=== PATIENT | female | born 1940 | race Caucasian/White ===

== ENCOUNTER 2020-12-17 23:21 | Inpatient (IN) | payer MEDICARE ==
[~2020-12-17 23:21] MED LIST: Iopamidol-370 76% 500 ML 1 ML ONE
[2020-12-18 00:01] LABS: #Lymphocytes 0.7 thou/uL (1.20-3.40); #Monocytes 0.6 thou/uL (0.11-0.59); #Neutrophils 10.2 thou/uL (1.40-6.50); %Basophils 0.1 % (0.0-1.0); %Eosinophils 0.1 % (0.0-10.0); %Lymphocytes 5.9 % (21.0-51.0); %Monocytes 4.9 % (0.0-10.0); Hemoglobin 11.9 g/dL (12.0-16.0); Mean Corpuscular HGB CONC 36.4 g/dL (32.0-36.0); Mean Corpuscular Hemoglobin 33.7 pg (27.0-31.0); Mean Corpuscular Volume 92.7 fL (78.0-98.0); Mean Platelet Volume 9.2 fL (7.4-10.4); Platelet Count 163 thou/uL (130-400); RBC Distribution Width 11.2 % (11.5-14.5); Red Blood Cell (RBC) Count 3.52 mill/uL (4.20-5.40); White Blood Cell (WBC) Count 11.4 thou/uL (4.8-10.8)
[2020-12-18 00:07] LABS: Prothrombin Time 13.4 sec (12.0-14.7)
[2020-12-18 00:08] LABS: PTT 31.7 sec (22.9-36.1)
[2020-12-18 00:11] LABS: D-Dimer Test 0.6 *mcg/mL (0.27-0.43)
[2020-12-18 00:12] LABS: ALT (SGPT) 15 U/L (8-55); AST (SGOT) 23 U/L (5-34); Albumin 3.8 g/dL (3.4-4.8); Alkaline Phosphatase 69 U/L (40-110); Anion Gap 15 mmol/L (10-20); BUN (Urea Nitrogen) 9 mg/dL (9.8-20.1); Calc. Creatinine Clearance 0 mL/min (70-130); Carbon Dioxide 21 mmol/L (23-31); Chloride 76 mmol/L (98-107); Globulin 2.3 g/dL (2.4-3.5); Protein, Total 6.1 g/dL (5.8-8.1)
[2020-12-18] MEDS ORDERED: Cefepime 2 GM VIAL ONE (00:19)
[2020-12-18] MEDS ORDERED: Vancomycin 1 GM/200 ML BAG ONE (00:19)
[2020-12-18] MEDS ORDERED: hydrALAZINE 20 MG/ML VIAL ONE (00:19)
[2020-12-18 00:21] LABS: Glucose 240 mg/dL (83-110); Potassium 2.7 mmol/L (3.5-5.1); Sodium 109 mmol/L (136-145)
[2020-12-18 00:36] LABS: Bacteria/HPF None Seen HPF (None Seen); Bilirubin Negative (Negative); Blood, Urine Trace (Negative); Clarity Clear (Clear); Glucose, Urine (Dipstick) 500 mg/dL (Negative); Ketone, Urine 10 mg/dL (Negative); Leukocyte Negative Leu/uL (Negative); Nitrite Negative (Negative); Protein, Urine (Dipstick) 10 mg/dL (Neg-Trace); RBC/HPF 0-3 HPF (0-3); Specific Gravity, Urine 1.016 (1.002-1.036); Squamous Epithelial 0-3 HPF (0-3); Urobilinogen Normal mg/dL (Less than 2); WBC/HPF 0-3 HPF (0-3); pH, Urine 7.5 (5.0-9.0)
[2020-12-18 01:52] LABS: SARS-CoV-2 NAA Rapid Test Not Detected (NotDetected)
[2020-12-18] MEDS ORDERED: Guaifenesin DM 100-10/5 ML UDCUP PO PRN (01:56)
[2020-12-18] MEDS ORDERED: Melatonin 3 MG TAB PO PRN (01:56)
[2020-12-18] MEDS ORDERED: Ondansetron PF 4 MG/2 ML Vial IVP PRN (01:56)
[2020-12-18] MEDS ORDERED: Promethazine HCl 12.5 MG in Sodium Chloride 0.9% 50 ML IVPB PRN (01:56)
[2020-12-18] MEDS ORDERED: Sodium Chloride 0.9% 1,000 ML IV SCH (02:00)
[2020-12-18] MEDS ORDERED: Electrolyte Replacement Protocol 1 EACH FS PRN (02:00)
[2020-12-18] MEDS ORDERED: HumaLOG 300 UNITS/3 ML VIAL SC PRN (02:28)
[2020-12-18 03:44] LABS: #Lymphocytes 0.4 thou/uL (1.20-3.40); #Monocytes 0.6 thou/uL (0.11-0.59); %Eosinophils 0.1 % (0.0-10.0); %Monocytes 4.9 % (0.0-10.0); %Neutrophils 92.1 % (42.0-75.0); Hemoglobin 12.4 g/dL (12.0-16.0); Mean Corpuscular HGB CONC 35.8 g/dL (32.0-36.0); Mean Corpuscular Volume 92.2 fL (78.0-98.0); Mean Platelet Volume 9.4 fL (7.4-10.4); Platelet Count 175 thou/uL (130-400); RBC Distribution Width 11.2 % (11.5-14.5); Red Blood Cell (RBC) Count 3.76 mill/uL (4.20-5.40)
[2020-12-18 03:54] LABS: Lactic Acid 2.1 mmol/L (0.5-2.2)
[2020-12-18 04:01] LABS: Anion Gap 13 mmol/L (10-20); BUN (Urea Nitrogen) 8 mg/dL (9.8-20.1); Calc. Creatinine Clearance 60 mL/min (70-130); Calcium 8.4 mg/dL (7.8-10.44); Carbon Dioxide 24 mmol/L (23-31); Chloride 79 mmol/L (98-107); Glucose 170 mg/dL (83-110); Magnesium 2.1 mg/dL (1.6-2.6)
[2020-12-18 04:07] LABS: Potassium 2.7 mmol/L (3.5-5.1); Sodium 113 mmol/L (136-145)
[2020-12-18] MEDS: Potassium Chloride 20 MEQ in Premix Bag 1 BAG IVPB SCH ×4 (04:45→13:42)
[2020-12-18] MEDS ORDERED: Potassium Chloride 20 MEQ TAB PO SCH ×2 (07:03→10:45)
[2020-12-18] MEDS: Famotidine 20 MG TAB PO SCH ×2 (09:45→21:46)
[2020-12-18] MEDS: Heparin 5,000 UNITS/ML VIAL SC SCH ×2 (09:45→21:46)
[2020-12-18 12:33] LABS: Anion Gap 15 mmol/L (10-20); BUN (Urea Nitrogen) 8 mg/dL (9.8-20.1); Calc. Creatinine Clearance 55 mL/min (70-130); Calcium 8.8 mg/dL (7.8-10.44); Carbon Dioxide 24 mmol/L (23-31); Chloride 80 mmol/L (98-107); Glucose 134 mg/dL (83-110); Potassium 3.5 mmol/L (3.5-5.1)
[2020-12-18 12:37] LABS: Sodium 115 mmol/L (136-145)
[2020-12-18] MEDS: Acetaminophen 325 MG TAB PO PRN (15:59)
[2020-12-18 16:47] LABS: Anion Gap 14 mmol/L (10-20); BUN (Urea Nitrogen) 8 mg/dL (9.8-20.1); Calc. Creatinine Clearance 56 mL/min (70-130); Carbon Dioxide 24 mmol/L (23-31); Chloride 82 mmol/L (98-107); Glucose 124 mg/dL (83-110); Potassium 4.2 mmol/L (3.5-5.1)
[2020-12-18 16:53] LABS: Sodium 116 mmol/L (136-145)
[2020-12-18 21:08] LABS: Anion Gap 15 mmol/L (10-20); BUN (Urea Nitrogen) 9 mg/dL (9.8-20.1); Calc. Creatinine Clearance 55 mL/min (70-130); Carbon Dioxide 21 mmol/L (23-31); Chloride 86 mmol/L (98-107); Glucose 121 mg/dL (83-110); Potassium 4.4 mmol/L (3.5-5.1)
[2020-12-18 21:40] LABS: Sodium 118 mmol/L (136-145)
[2020-12-19 01:22] LABS: Anion Gap 15 mmol/L (10-20); BUN (Urea Nitrogen) 7 mg/dL (9.8-20.1); Calc. Creatinine Clearance 59 mL/min (70-130); Calcium 8.8 mg/dL (7.8-10.44); Carbon Dioxide 21 mmol/L (23-31); Chloride 88 mmol/L (98-107); Glucose 123 mg/dL (83-110); Potassium 4.5 mmol/L (3.5-5.1)
[2020-12-19 01:29] LABS: Sodium 119 mmol/L (136-145)
[2020-12-19 03:42] LABS: Anion Gap 12 mmol/L (10-20); BUN (Urea Nitrogen) 7 mg/dL (9.8-20.1); Calc. Creatinine Clearance 59 mL/min (70-130); Calcium 8.9 mg/dL (7.8-10.44); Carbon Dioxide 25 mmol/L (23-31); Chloride 88 mmol/L (98-107); Glucose 128 mg/dL (83-110); Magnesium 2.2 mg/dL (1.6-2.6); Potassium 3.9 mmol/L (3.5-5.1); Sodium 121 mmol/L (136-145)
[2020-12-19 06:42] LABS: #Basophils 0.1 thou/uL (0.0-0.2); #Lymphocytes 1.1 thou/uL (1.20-3.40); #Monocytes 1.2 thou/uL (0.11-0.59); #Neutrophils 6.7 thou/uL (1.40-6.50); %Basophils 0.7 % (0.0-1.0); %Eosinophils 0.3 % (0.0-10.0); %Lymphocytes 12.5 % (21.0-51.0); %Monocytes 12.9 % (0.0-10.0); %Neutrophils 73.7 % (42.0-75.0); Hemoglobin 12.6 g/dL (12.0-16.0); MDiff Complete? YES; Mean Corpuscular HGB CONC 35.5 g/dL (32.0-36.0); Mean Corpuscular Hemoglobin 33.1 pg (27.0-31.0); Mean Corpuscular Volume 93.2 fL (78.0-98.0); Mean Platelet Volume 11.2 fL (7.4-10.4); Platelet Clumps MODERATE; Platelet Count 182 thou/uL (130-400); RBC Distribution Width 11.5 % (11.5-14.5); White Blood Cell (WBC) Count 9.1 thou/uL (4.8-10.8)
[2020-12-19] MEDS: Heparin 5,000 UNITS/ML VIAL SC SCH ×2 (08:10→21:58)
[2020-12-19] MEDS: Famotidine 20 MG TAB PO SCH ×2 (08:10→21:57)
[2020-12-19] MEDS ORDERED: Loratadine 10 MG TAB PO PRN (08:23)
[2020-12-19] MEDS ORDERED: HYDROcodone/Acetaminophen 5/325 mg Tablet PO PRN (08:23)
[2020-12-19] MEDS ORDERED: Sodium Chloride 0.65% Nasal 44 ML BOT EA NARE PRN (08:23)
[2020-12-19] MEDS ORDERED: Ondansetron ODT 4 MG TAB PO PRN (08:23)
[2020-12-19] MEDS ORDERED: Cepastat Lozenges 1 LOZ PO PRN (08:23)
[2020-12-19] MEDS ORDERED: GUAIFENESIN SF SOLN 200 MG/10 ML UDCUP PO PRN (08:23)
[2020-12-19] MEDS ORDERED: Bisacodyl 5 MG TAB PO PRN (08:23)
[2020-12-19] MEDS ORDERED: Loperamide HCl 2 MG CAP PO PRN (08:23)
[2020-12-19] MEDS ORDERED: Calcium Carbonate 500 MG ChewTAB PO PRN (08:23)
[2020-12-19 08:47] LABS: Anion Gap 15 mmol/L (10-20); BUN (Urea Nitrogen) 8 mg/dL (9.8-20.1); Calc. Creatinine Clearance 49 mL/min (70-130); Calcium 9.4 mg/dL (7.8-10.44); Carbon Dioxide 25 mmol/L (23-31); Chloride 86 mmol/L (98-107); Glucose 147 mg/dL (83-110); Potassium 3.6 mmol/L (3.5-5.1); Sodium 122 mmol/L (136-145)
[2020-12-19] MEDS ORDERED: Levothyroxine Sodium 100 MCG TAB PO SCH (09:00)
[2020-12-19] MEDS ORDERED: Losartan 25 MG TAB PO SCH ×2 (09:00→17:00)
[2020-12-19] MEDS ORDERED: Potassium Chloride 20 MEQ TAB PO SCH (09:45)
[2020-12-19] MEDS: Folic Acid 1 MG TAB PO SCH (10:08)
[2020-12-19] MEDS: Cyanocobalamin (Vitamin B-12) 1,000 MCG TAB PO SCH (10:08)
[2020-12-19] MEDS: Labetalol HCl 100 MG/20 ML VIAL SLOW IVP PRN ×2 (12:15→16:38)
[2020-12-19] MEDS: cloNIDine 0.1 MG TAB PO PRN (15:12)
[2020-12-19 17:07] LABS: Anion Gap 13 mmol/L (10-20); BUN (Urea Nitrogen) 8 mg/dL (9.8-20.1); Calc. Creatinine Clearance 56 mL/min (70-130); Calcium 8.9 mg/dL (7.8-10.44); Carbon Dioxide 22 mmol/L (23-31); Chloride 86 mmol/L (98-107); Glucose 121 mg/dL (83-110); Potassium 4.4 mmol/L (3.5-5.1)
[2020-12-19 17:19] LABS: Sodium 117 mmol/L (136-145)
[2020-12-19] MEDS ORDERED: Sodium Chloride 1 GM TAB PO SCH (17:30)
[2020-12-19] MEDS: hydrALAZINE 20 MG/ML VIAL SLOW IVP PRN (18:11)
[2020-12-19] MEDS: Sodium Chloride 1 GM TAB PO SCH (21:58)
[2020-12-20] MEDS: Acetaminophen 325 MG TAB PO PRN (02:26)
[2020-12-20] MEDS: hydrALAZINE 20 MG/ML VIAL SLOW IVP PRN ×2 (03:24→13:09)
[2020-12-20 05:49] LABS: #Neutrophils 6.4 thou/uL (1.40-6.50); %Basophils 0.2 % (0.0-1.0); %Eosinophils 0.3 % (0.0-10.0); %Neutrophils 75.4 % (42.0-75.0); Hemoglobin 12.7 g/dL (12.0-16.0); Mean Corpuscular HGB CONC 35.6 g/dL (32.0-36.0); Mean Corpuscular Hemoglobin 33.2 pg (27.0-31.0); Mean Corpuscular Volume 93.3 fL (78.0-98.0); Mean Platelet Volume 9.2 fL (7.4-10.4); Platelet Count 206 thou/uL (130-400); RBC Distribution Width 11.5 % (11.5-14.5); Red Blood Cell (RBC) Count 3.81 mill/uL (4.20-5.40); White Blood Cell (WBC) Count 8.5 thou/uL (4.8-10.8)
[2020-12-20 06:09] LABS: ALT (SGPT) 18 U/L (8-55); AST (SGOT) 33 U/L (5-34); Alkaline Phosphatase 73 U/L (40-110); Anion Gap 12 mmol/L (10-20); BUN (Urea Nitrogen) 8 mg/dL (9.8-20.1); Bilirubin, Total 0.8 mg/dL (0.2-1.2); Calc. Creatinine Clearance 58 mL/min (70-130); Calcium 8.9 mg/dL (7.8-10.44); Carbon Dioxide 25 mmol/L (23-31); Chloride 88 mmol/L (98-107); Globulin 2.6 g/dL (2.4-3.5); Glucose 126 mg/dL (83-110); Magnesium 1.9 mg/dL (1.6-2.6); Potassium 3.9 mmol/L (3.5-5.1); Protein, Total 6.6 g/dL (5.8-8.1); Sodium 121 mmol/L (136-145)
[2020-12-20 06:13] LABS: Phosphorus 2.3 mg/dL (2.3-4.7)
[2020-12-20] MEDS: cloNIDine 0.1 MG TAB PO PRN ×2 (06:33→23:50)
[2020-12-20] MEDS: Levothyroxine 150 MCG TAB PO SCH (06:33)
[2020-12-20] MEDS: Cyanocobalamin (Vitamin B-12) 1,000 MCG TAB PO SCH (08:54)
[2020-12-20] MEDS: Folic Acid 1 MG TAB PO SCH (08:54)
[2020-12-20] MEDS: Losartan 25 MG TAB PO SCH (08:55)
[2020-12-20] MEDS: Heparin 5,000 UNITS/ML VIAL SC SCH ×2 (08:56→20:46)
[2020-12-20] MEDS: Sodium Chloride 1 GM TAB PO SCH ×3 (08:56→20:39)
[2020-12-20] MEDS: Famotidine 20 MG TAB PO SCH ×2 (08:56→20:42)
[2020-12-20] MEDS ORDERED: Amlodipine 5 MG TAB PO SCH (09:00)
[2020-12-20 12:31] LABS: Anion Gap 12 mmol/L (10-20); BUN (Urea Nitrogen) 9 mg/dL (9.8-20.1); Calc. Creatinine Clearance 60 mL/min (70-130); Calcium 8.9 mg/dL (7.8-10.44); Carbon Dioxide 24 mmol/L (23-31); Chloride 86 mmol/L (98-107); Glucose 115 mg/dL (83-110); Potassium 3.9 mmol/L (3.5-5.1)
[2020-12-20 12:36] LABS: Sodium 118 mmol/L (136-145)
[2020-12-20] MEDS: Labetalol HCl 100 MG/20 ML VIAL SLOW IVP PRN (19:18)
[2020-12-21] MEDS: hydrALAZINE 20 MG/ML VIAL SLOW IVP PRN ×2 (01:35→20:58)
[2020-12-21] MEDS: Levothyroxine 150 MCG TAB PO SCH (06:28)
[2020-12-21 07:19] LABS: #Lymphocytes 1.1 thou/uL (1.20-3.40); #Neutrophils 5.6 thou/uL (1.40-6.50); %Basophils 0.2 % (0.0-1.0); %Eosinophils 0.5 % (0.0-10.0); %Lymphocytes 14.7 % (21.0-51.0); %Monocytes 12.8 % (0.0-10.0); %Neutrophils 71.8 % (42.0-75.0); Hemoglobin 12.4 g/dL (12.0-16.0); Mean Corpuscular HGB CONC 33.7 g/dL (32.0-36.0); Mean Corpuscular Hemoglobin 31.9 pg (27.0-31.0); Mean Corpuscular Volume 94.7 fL (78.0-98.0); Mean Platelet Volume 10.3 fL (7.4-10.4); Platelet Count 156 thou/uL (130-400); RBC Distribution Width 11.5 % (11.5-14.5); Red Blood Cell (RBC) Count 3.89 mill/uL (4.20-5.40); White Blood Cell (WBC) Count 7.7 thou/uL (4.8-10.8)
[2020-12-21 07:33] LABS: Anion Gap 13 mmol/L (10-20); BUN (Urea Nitrogen) 10 mg/dL (9.8-20.1); Calc. Creatinine Clearance 56 mL/min (70-130); Carbon Dioxide 22 mmol/L (23-31); Chloride 88 mmol/L (98-107); Glucose 122 mg/dL (83-110); Potassium 3.4 mmol/L (3.5-5.1); Sodium 120 mmol/L (136-145)
[2020-12-21] MEDS ORDERED: Potassium Chloride 20 MEQ TAB PO SCH (08:00)
[2020-12-21] MEDS ORDERED: Amlodipine 10 MG TAB PO SCH (09:00)
[2020-12-21] MEDS ORDERED: Tolvaptan 15 MG TAB PO SCH (09:00)
[2020-12-21] MEDS: Losartan 25 MG TAB PO SCH (09:42)
[2020-12-21] MEDS: Cyanocobalamin (Vitamin B-12) 1,000 MCG TAB PO SCH (09:43)
[2020-12-21] MEDS: Folic Acid 1 MG TAB PO SCH (09:43)
[2020-12-21] MEDS: Famotidine 20 MG TAB PO SCH ×2 (09:43→20:56)
[2020-12-21] MEDS: Heparin 5,000 UNITS/ML VIAL SC SCH ×2 (09:43→20:56)
[2020-12-21] MEDS: TOLVAPTAN 30 MG TAB PO SCH (09:43)
[2020-12-21 16:42] LABS: Anion Gap 14 mmol/L (10-20); BUN (Urea Nitrogen) 12 mg/dL (9.8-20.1); Calc. Creatinine Clearance 53 mL/min (70-130); Calcium 9.7 mg/dL (7.8-10.44); Carbon Dioxide 23 mmol/L (23-31); Chloride 92 mmol/L (98-107); Glucose 137 mg/dL (83-110); Potassium 3.9 mmol/L (3.5-5.1); Sodium 125 mmol/L (136-145)
[2020-12-22] MEDS: hydrALAZINE 20 MG/ML VIAL SLOW IVP PRN ×3 (04:40→22:05)
[2020-12-22 05:13] LABS: #Basophils 0.1 thou/uL (0.0-0.2); #Monocytes 1.1 thou/uL (0.11-0.59); #Neutrophils 5.7 thou/uL (1.40-6.50); %Basophils 0.8 % (0.0-1.0); %Eosinophils 0.3 % (0.0-10.0); %Lymphocytes 12.9 % (21.0-51.0); %Monocytes 13.9 % (0.0-10.0); %Neutrophils 72.1 % (42.0-75.0); Hemoglobin 13.7 g/dL (12.0-16.0); Mean Corpuscular HGB CONC 33.7 g/dL (32.0-36.0); Mean Corpuscular Volume 95.2 fL (78.0-98.0); Mean Platelet Volume 9.6 fL (7.4-10.4); Platelet Count 229 thou/uL (130-400); RBC Distribution Width 11.8 % (11.5-14.5); Red Blood Cell (RBC) Count 4.28 mill/uL (4.20-5.40); White Blood Cell (WBC) Count 7.9 thou/uL (4.8-10.8)
[2020-12-22] MEDS: Levothyroxine 150 MCG TAB PO SCH (05:34)
[2020-12-22 05:36] LABS: ALT (SGPT) 30 U/L (8-55); AST (SGOT) 40 U/L (5-34); Albumin 4.3 g/dL (3.4-4.8); Alkaline Phosphatase 79 U/L (40-110); Anion Gap 17 mmol/L (10-20); BUN (Urea Nitrogen) 11 mg/dL (9.8-20.1); Bilirubin, Total 0.9 mg/dL (0.2-1.2); Calc. Creatinine Clearance 56 mL/min (70-130); Calcium 9.5 mg/dL (7.8-10.44); Carbon Dioxide 21 mmol/L (23-31); Chloride 94 mmol/L (98-107); Glucose 116 mg/dL (83-110); Potassium 3.6 mmol/L (3.5-5.1); Protein, Total 7.3 g/dL (5.8-8.1); Sodium 128 mmol/L (136-145)
[2020-12-22] MEDS ORDERED: Carvedilol 6.25 MG TAB PO SCH (08:00)
[2020-12-22] MEDS ORDERED: Potassium Chloride 20 MEQ TAB PO SCH (08:00)
[2020-12-22] MEDS: Heparin 5,000 UNITS/ML VIAL SC SCH ×2 (10:22→22:01)
[2020-12-22] MEDS: Potassium Chloride 20 MEQ TAB PO SCH (10:23)
[2020-12-22] MEDS: Cyanocobalamin (Vitamin B-12) 1,000 MCG TAB PO SCH (10:23)
[2020-12-22] MEDS: Losartan 25 MG TAB PO SCH (10:24)
[2020-12-22] MEDS: Labetalol 100 MG TAB PO SCH ×2 (10:24→22:26)
[2020-12-22] MEDS: NIFEdipine XL 60 MG TAB PO SCH ×2 (10:24→22:27)
[2020-12-22] MEDS: Famotidine 20 MG TAB PO SCH ×2 (10:24→22:26)
[2020-12-22] MEDS: Folic Acid 1 MG TAB PO SCH (10:24)
[2020-12-22] MEDS: TOLVAPTAN 30 MG TAB PO SCH (10:25)
[2020-12-23] MEDS: Levothyroxine 150 MCG TAB PO SCH (05:30)
[2020-12-23] MEDS: hydrALAZINE 20 MG/ML VIAL SLOW IVP PRN ×3 (05:48→20:30)
[2020-12-23 07:03] LABS: Albumin 4.1 g/dL (3.4-4.8); Anion Gap 14 mmol/L (10-20); BUN (Urea Nitrogen) 18 mg/dL (9.8-20.1); BUN/Creatinine Ratio 26.87; Calc. Creatinine Clearance 57 mL/min (70-130); Calcium 9.6 mg/dL (7.8-10.44); Carbon Dioxide 24 mmol/L (23-31); Chloride 94 mmol/L (98-107); Glucose 128 mg/dL (83-110); Phosphorus 3.5 mg/dL (2.3-4.7); Potassium 3.4 mmol/L (3.5-5.1); Sodium 129 mmol/L (136-145)
[2020-12-23] MEDS ORDERED: Potassium Chloride 40 MEQ in Premix Bag 1 BAG IVPB SCH (09:00)
[2020-12-23] MEDS: Potassium Chloride 20 MEQ TAB PO SCH (09:09)
[2020-12-23] MEDS: Heparin 5,000 UNITS/ML VIAL SC SCH ×2 (09:12→20:30)
[2020-12-23] MEDS: Cyanocobalamin (Vitamin B-12) 1,000 MCG TAB PO SCH (09:33)
[2020-12-23] MEDS: Losartan 25 MG TAB PO SCH (09:34)
[2020-12-23] MEDS: Folic Acid 1 MG TAB PO SCH (09:34)
[2020-12-23] MEDS: Labetalol 100 MG TAB PO SCH ×2 (09:34→21:18)
[2020-12-23] MEDS: NIFEdipine XL 60 MG TAB PO SCH ×2 (09:34→21:18)
[2020-12-23] MEDS: Famotidine 20 MG TAB PO SCH ×2 (09:34→21:18)
[2020-12-23] MEDS: TOLVAPTAN 30 MG TAB PO SCH (09:35)
[2020-12-23] MEDS ORDERED: Lorazepam 2 MG/ML VIAL SLOW IVP SCH (10:30)
[2020-12-23] MEDS: Labetalol HCl 100 MG/20 ML VIAL SLOW IVP PRN (11:28)
[2020-12-23] MEDS: Labetalol HCl 100 MG/20 ML VIAL SLOW IVP SCH ×2 (16:14→22:31)
[2020-12-23 16:26] LABS: Anion Gap 14 mmol/L (10-20); BUN (Urea Nitrogen) 20 mg/dL (9.8-20.1); Calc. Creatinine Clearance 54 mL/min (70-130); Calcium 9.9 mg/dL (7.8-10.44); Carbon Dioxide 24 mmol/L (23-31); Chloride 97 mmol/L (98-107); Glucose 133 mg/dL (83-110); Potassium 4.4 mmol/L (3.5-5.1); Sodium 131 mmol/L (136-145)
[2020-12-23] MEDS ORDERED: Morphine 2 MG/ML VIAL SLOW IVP PRN (20:41)
[2020-12-23] MEDS: Acetaminophen 650 MG Suppository PR PRN (20:55)
[2020-12-24] MEDS: hydrALAZINE 20 MG/ML VIAL SLOW IVP PRN (03:45)
[2020-12-24] MEDS: Acetaminophen 650 MG Suppository PR PRN (03:51)
[2020-12-24 04:14] LABS: #Lymphocytes 0.9 thou/uL (1.20-3.40); #Monocytes 1.3 thou/uL (0.11-0.59); #Neutrophils 9.1 thou/uL (1.40-6.50); %Basophils 0.1 % (0.0-1.0); %Eosinophils 0.2 % (0.0-10.0); %Monocytes 11.8 % (0.0-10.0); %Neutrophils 79.8 % (42.0-75.0); Hemoglobin 13.6 g/dL (12.0-16.0); Mean Corpuscular HGB CONC 35.5 g/dL (32.0-36.0); Mean Corpuscular Volume 95.9 fL (78.0-98.0); Mean Platelet Volume 8.7 fL (7.4-10.4); Platelet Count 235 thou/uL (130-400); White Blood Cell (WBC) Count 11.4 thou/uL (4.8-10.8)
[2020-12-24 04:33] LABS: Albumin 4.1 g/dL (3.4-4.8); Anion Gap 16 mmol/L (10-20); BUN (Urea Nitrogen) 26 mg/dL (9.8-20.1); BUN/Creatinine Ratio 37.68; Calc. Creatinine Clearance 55 mL/min (70-130); Calcium 10.1 mg/dL (7.8-10.44); Carbon Dioxide 24 mmol/L (23-31); Chloride 99 mmol/L (98-107); Glucose 130 mg/dL (83-110); Potassium 4.5 mmol/L (3.5-5.1); Sodium 134 mmol/L (136-145)
[2020-12-24 04:35] LABS: ALT (SGPT) 33 U/L (8-55); AST (SGOT) 27 U/L (5-34); Albumin 4.2 g/dL (3.4-4.8); Alkaline Phosphatase 82 U/L (40-110); Bilirubin, Direct 0.4 mg/dL (0.1-0.3); Bilirubin, Total 0.9 mg/dL (0.2-1.2); Protein, Total 7.2 g/dL (5.8-8.1)
[2020-12-24] MEDS: Levothyroxine 150 MCG TAB PO SCH (05:05)
[2020-12-24] MEDS ORDERED: Dextrose 5 % And 0.9 % NaCl 1,000 ML IV SCH (06:15)
[2020-12-24] MEDS: Labetalol HCl 100 MG/20 ML VIAL SLOW IVP SCH (09:37)
[2020-12-24] MEDS: Heparin 5,000 UNITS/ML VIAL SC SCH ×2 (09:49→21:53)
[2020-12-24] MEDS: Famotidine 20 MG TAB PO SCH ×2 (10:07→21:55)
[2020-12-24] MEDS: Cyanocobalamin (Vitamin B-12) 1,000 MCG TAB PO SCH (10:07)
[2020-12-24] MEDS: Losartan 25 MG TAB PO SCH ×2 (10:08→21:55)
[2020-12-24] MEDS: Folic Acid 1 MG TAB PO SCH (10:08)
[2020-12-24] MEDS: Labetalol 100 MG TAB PO SCH ×2 (10:08→21:54)
[2020-12-24] MEDS: NIFEdipine XL 60 MG TAB PO SCH ×2 (10:08→21:55)
[2020-12-24] MEDS: TOLVAPTAN 30 MG TAB PO SCH (10:09)
[2020-12-24] MEDS ORDERED: Labetalol HCl 100 MG/20 ML VIAL SLOW IVP SCH (12:00)
[2020-12-24 15:19] LABS: BUN (Urea Nitrogen) 28 mg/dL (9.8-20.1); Calc. Creatinine Clearance 56 mL/min (70-130); Calcium 9.9 mg/dL (7.8-10.44); Glucose 127 mg/dL (83-110)
[2020-12-24 15:28] LABS: Chloride 98 mmol/L (98-107); Potassium 4.3 mmol/L (3.5-5.1); Sodium 132 mmol/L (136-145)
[2020-12-24 17:27] LABS: Anion Gap 19 mmol/L (10-20); Carbon Dioxide 19 mmol/L (23-31)
[2020-12-25 05:12] LABS: #Eosinphils 0.1 thou/uL (0.0-0.7); #Lymphocytes 1.2 thou/uL (1.20-3.40); #Monocytes 1.2 thou/uL (0.11-0.59); #Neutrophils 6.2 thou/uL (1.40-6.50); %Basophils 0.1 % (0.0-1.0); %Eosinophils 0.8 % (0.0-10.0); %Monocytes 13.3 % (0.0-10.0); %Neutrophils 71.9 % (42.0-75.0); Hemoglobin 11.8 g/dL (12.0-16.0); Mean Corpuscular HGB CONC 34.9 g/dL (32.0-36.0); Mean Corpuscular Hemoglobin 33.7 pg (27.0-31.0); Mean Corpuscular Volume 96.6 fL (78.0-98.0); Mean Platelet Volume 10.6 fL (7.4-10.4); Platelet Count 175 thou/uL (130-400); Red Blood Cell (RBC) Count 3.51 mill/uL (4.20-5.40); White Blood Cell (WBC) Count 8.6 thou/uL (4.8-10.8)
[2020-12-25 05:37] LABS: Albumin 3.9 g/dL (3.4-4.8); Anion Gap 14 mmol/L (10-20); BUN (Urea Nitrogen) 27 mg/dL (9.8-20.1); BUN/Creatinine Ratio 41.54; Calc. Creatinine Clearance 58 mL/min (70-130); Calcium 9.3 mg/dL (7.8-10.44); Carbon Dioxide 25 mmol/L (23-31); Chloride 99 mmol/L (98-107); Glucose 119 mg/dL (83-110); Potassium 3.6 mmol/L (3.5-5.1); Sodium 134 mmol/L (136-145)
[2020-12-25] MEDS: Levothyroxine 150 MCG TAB PO SCH (05:54)
[2020-12-25] MEDS: Potassium Chloride 20 MEQ TAB PO SCH (09:27)
[2020-12-25] MEDS: Labetalol 100 MG TAB PO SCH ×2 (09:27→22:25)
[2020-12-25] MEDS: Losartan 25 MG TAB PO SCH ×2 (09:28→22:25)
[2020-12-25] MEDS: Sodium Chloride 1 GM TAB PO SCH ×3 (09:28→22:25)
[2020-12-25] MEDS: Famotidine 20 MG TAB PO SCH ×2 (09:28→22:26)
[2020-12-25] MEDS: Folic Acid 1 MG TAB PO SCH (09:28)
[2020-12-25] MEDS: NIFEdipine XL 60 MG TAB PO SCH ×2 (09:28→22:26)
[2020-12-25] MEDS: Heparin 5,000 UNITS/ML VIAL SC SCH ×2 (09:29→22:26)
[2020-12-25] MEDS: Cyanocobalamin (Vitamin B-12) 1,000 MCG TAB PO SCH (09:29)
[2020-12-25 16:52] LABS: Bilirubin Negative (Negative); Blood, Urine Trace (Negative); Clarity Extra Turbid (Clear); Glucose, Urine (Dipstick) Normal (Negative); Ketone, Urine Negative (Negative); Leukocyte 500 Leu/uL (Negative); Nitrite 1+ (Negative); Protein, Urine (Dipstick) 20 mg/dL (Neg-Trace); Specific Gravity, Urine 1.013 (1.002-1.036); Squamous Epithelial 0-3 HPF (0-3); Urobilinogen Normal mg/dL (Less than 2); WBC/HPF Greater than 50 HPF (0-3)
[2020-12-25 16:53] LABS: Bacteria/HPF 4+ HPF (None Seen)
[2020-12-25] MEDS: cefTRIAXone\\ROCEPHIN 1 GM in Sodium Chloride 0.9% 100 ML IVPB SCH (20:54)
[2020-12-26 05:08] LABS: #Eosinphils 0.1 thou/uL (0.0-0.7); #Lymphocytes 1.3 thou/uL (1.20-3.40); #Monocytes 0.9 thou/uL (0.11-0.59); #Neutrophils 4.3 thou/uL (1.40-6.50); %Basophils 0.4 % (0.0-1.0); %Eosinophils 1.9 % (0.0-10.0); %Lymphocytes 19.9 % (21.0-51.0); %Monocytes 13.7 % (0.0-10.0); %Neutrophils 64.2 % (42.0-75.0); Mean Corpuscular HGB CONC 33.8 g/dL (32.0-36.0); Mean Corpuscular Hemoglobin 32.9 pg (27.0-31.0); Mean Corpuscular Volume 97.3 fL (78.0-98.0); Mean Platelet Volume 9.5 fL (7.4-10.4); Platelet Count 218 thou/uL (130-400); RBC Distribution Width 11.9 % (11.5-14.5); Red Blood Cell (RBC) Count 3.65 mill/uL (4.20-5.40); White Blood Cell (WBC) Count 6.7 thou/uL (4.8-10.8)
[2020-12-26 05:30] LABS: Anion Gap 16 mmol/L (10-20); BUN (Urea Nitrogen) 18 mg/dL (9.8-20.1); Calc. Creatinine Clearance 63 mL/min (70-130); Calcium 9.4 mg/dL (7.8-10.44); Carbon Dioxide 23 mmol/L (23-31); Chloride 101 mmol/L (98-107); Glucose 101 mg/dL (83-110); Phosphorus 2.9 mg/dL (2.3-4.7); Potassium 3.5 mmol/L (3.5-5.1); Sodium 136 mmol/L (136-145)
[2020-12-26] MEDS: Levothyroxine 150 MCG TAB PO SCH (05:46)
[2020-12-26] MEDS: Potassium Chloride 20 MEQ TAB PO SCH (08:46)
[2020-12-26] MEDS: Labetalol 100 MG TAB PO SCH ×2 (08:47→20:07)
[2020-12-26] MEDS: Famotidine 20 MG TAB PO SCH ×2 (08:47→20:08)
[2020-12-26] MEDS: Cyanocobalamin (Vitamin B-12) 1,000 MCG TAB PO SCH (08:47)
[2020-12-26] MEDS: NIFEdipine XL 60 MG TAB PO SCH ×2 (08:48→20:08)
[2020-12-26] MEDS: Folic Acid 1 MG TAB PO SCH (08:48)
[2020-12-26] MEDS: Losartan 25 MG TAB PO SCH ×2 (08:48→20:07)
[2020-12-26] MEDS: Heparin 5,000 UNITS/ML VIAL SC SCH ×2 (08:49→20:08)
[2020-12-26] MEDS: Sodium Chloride 1 GM TAB PO SCH ×3 (08:49→20:08)
[2020-12-26] MEDS: Senokot S 8.6-50 MG TAB PO PRN (16:11)
[2020-12-26] MEDS: cefTRIAXone\\ROCEPHIN 1 GM in Sodium Chloride 0.9% 100 ML IVPB SCH (20:01)
[2020-12-27] MEDS: Levothyroxine 150 MCG TAB PO SCH (05:51)
[2020-12-27 08:12] LABS: Albumin 3.9 g/dL (3.4-4.8); Anion Gap 16 mmol/L (10-20); BUN (Urea Nitrogen) 15 mg/dL (9.8-20.1); BUN/Creatinine Ratio 25.42; Calc. Creatinine Clearance 63 mL/min (70-130); Calcium 9.3 mg/dL (7.8-10.44); Carbon Dioxide 21 mmol/L (23-31); Chloride 100 mmol/L (98-107); Glucose 107 mg/dL (83-110); Phosphorus 3.1 mg/dL (2.3-4.7); Potassium 3.7 mmol/L (3.5-5.1); Sodium 133 mmol/L (136-145)
[2020-12-27] MEDS: NIFEdipine XL 60 MG TAB PO SCH ×2 (09:07→20:38)
[2020-12-27] MEDS: Losartan 25 MG TAB PO SCH ×2 (09:07→20:40)
[2020-12-27] MEDS: Famotidine 20 MG TAB PO SCH ×2 (09:07→20:40)
[2020-12-27] MEDS: Labetalol 100 MG TAB PO SCH ×2 (09:07→20:39)
[2020-12-27] MEDS: Folic Acid 1 MG TAB PO SCH (09:07)
[2020-12-27] MEDS: Heparin 5,000 UNITS/ML VIAL SC SCH ×2 (09:08→20:41)
[2020-12-27] MEDS: Cyanocobalamin (Vitamin B-12) 1,000 MCG TAB PO SCH (09:08)
[2020-12-27] MEDS: Sodium Chloride 1 GM TAB PO SCH ×3 (09:08→20:40)
[2020-12-27] MEDS: Potassium Bicarbonate/Cit Ac 20 MEQ TAB PO SCH (09:12)
[2020-12-27] MEDS: cefTRIAXone\\ROCEPHIN 1 GM in Sodium Chloride 0.9% 100 ML IVPB SCH (20:28)
[2020-12-28] MEDS: Levothyroxine 150 MCG TAB PO SCH (06:17)
[2020-12-28 07:39] LABS: Albumin 3.8 g/dL (3.4-4.8); Anion Gap 13 mmol/L (10-20); BUN (Urea Nitrogen) 19 mg/dL (9.8-20.1); BUN/Creatinine Ratio 31.15; Calc. Creatinine Clearance 61 mL/min (70-130); Calcium 9.4 mg/dL (7.8-10.44); Carbon Dioxide 26 mmol/L (23-31); Chloride 101 mmol/L (98-107); Glucose 115 mg/dL (83-110); Phosphorus 3.8 mg/dL (2.3-4.7); Potassium 3.7 mmol/L (3.5-5.1); Sodium 136 mmol/L (136-145)
[2020-12-28] MEDS: Potassium Bicarbonate/Cit Ac 20 MEQ TAB PO SCH (08:35)
[2020-12-28] MEDS: NIFEdipine XL 60 MG TAB PO SCH ×2 (08:36→20:33)
[2020-12-28] MEDS: Losartan 25 MG TAB PO SCH ×2 (08:40→20:33)
[2020-12-28] MEDS: Famotidine 20 MG TAB PO SCH ×2 (08:41→20:33)
[2020-12-28] MEDS: Cyanocobalamin (Vitamin B-12) 1,000 MCG TAB PO SCH (08:41)
[2020-12-28] MEDS: Folic Acid 1 MG TAB PO SCH (08:42)
[2020-12-28] MEDS: Sodium Chloride 1 GM TAB PO SCH ×3 (08:43→20:33)
[2020-12-28] MEDS: Labetalol 100 MG TAB PO SCH ×2 (10:08→21:49)
[2020-12-28] MEDS: Heparin 5,000 UNITS/ML VIAL SC SCH ×2 (10:09→20:34)
[2020-12-28 16:15] LABS: 5 HIAA,Urine 8.2 mg/L (Undefined); 5 HIAA-24H Urine 4.3 mg/24 hr (0.0-14.9)
[2020-12-28 16:38] LABS: Metanephrine,Ur 439 ug/L (Undefined); Metanephrines Total-24H 230 ug/24 hr (36-209); Normetanephrine,Ur 1893 ug/L (Undefined); Normetanephrines-24H U 994 ug/24 hr (131-612)
[2020-12-28] MEDS ORDERED: Polyethylene Glycol 3350 17 GM Packet PO SCH (17:00)
[2020-12-28] MEDS: Senokot S 8.6-50 MG TAB PO PRN (17:43)
[2020-12-28] MEDS: Nitrofurantoin Monohyd/M-Cryst 100 MG CAP PO SCH (20:34)
[2020-12-29] MEDS: Levothyroxine 150 MCG TAB PO SCH (05:47)
[2020-12-29 07:02] LABS: Anion Gap 15 mmol/L (10-20); BUN (Urea Nitrogen) 15 mg/dL (9.8-20.1); Calc. Creatinine Clearance 63 mL/min (70-130); Calcium 9.4 mg/dL (7.8-10.44); Carbon Dioxide 25 mmol/L (23-31); Chloride 99 mmol/L (98-107); Glucose 108 mg/dL (83-110); Potassium 3.6 mmol/L (3.5-5.1); Sodium 135 mmol/L (136-145)
[2020-12-29] MEDS: Famotidine 20 MG TAB PO SCH ×2 (09:47→20:17)
[2020-12-29] MEDS: Nitrofurantoin Monohyd/M-Cryst 100 MG CAP PO SCH ×2 (09:47→20:18)
[2020-12-29] MEDS: Losartan 25 MG TAB PO SCH ×2 (09:47→20:17)
[2020-12-29] MEDS: NIFEdipine XL 60 MG TAB PO SCH ×2 (09:48→20:17)
[2020-12-29] MEDS: Potassium Bicarbonate/Cit Ac 20 MEQ TAB PO SCH (09:48)
[2020-12-29] MEDS: Folic Acid 1 MG TAB PO SCH (09:49)
[2020-12-29] MEDS: Sodium Chloride 1 GM TAB PO SCH ×3 (09:49→20:18)
[2020-12-29] MEDS: Cyanocobalamin (Vitamin B-12) 1,000 MCG TAB PO SCH (09:49)
[2020-12-29] MEDS: Labetalol 100 MG TAB PO SCH ×2 (09:50→21:27)
[2020-12-29] MEDS: Heparin 5,000 UNITS/ML VIAL SC SCH ×2 (09:50→20:18)
[2020-12-29] MEDS ORDERED: Bisacodyl 10 MG SUPP PR PRN (13:31)
[2020-12-29] MEDS ORDERED: Fleet Enema 133 ML BOT PR SCH (16:00)
[2020-12-29 18:23] VITALS: BMI 22.8
[2020-12-30 00:37] LABS: Metanephrine,Plasma 49.9 pg/mL (0.0-88.0); Normetanephrine,Pl 321.5 pg/mL (0.0-191.8)
[2020-12-30] MEDS: Levothyroxine 150 MCG TAB PO SCH (05:32)
[2020-12-30 06:12] LABS: Anion Gap 17 mmol/L (10-20); BUN (Urea Nitrogen) 11 mg/dL (9.8-20.1); Calc. Creatinine Clearance 63 mL/min (70-130); Calcium 9.2 mg/dL (7.8-10.44); Carbon Dioxide 22 mmol/L (23-31); Chloride 99 mmol/L (98-107); Glucose 106 mg/dL (83-110); Potassium 3.7 mmol/L (3.5-5.1); Sodium 134 mmol/L (136-145)
[2020-12-30] MEDS ORDERED: Labetalol 100 MG TAB PO SCH (09:00)
[2020-12-30] MEDS: Potassium Bicarbonate/Cit Ac 20 MEQ TAB PO SCH (09:11)
[2020-12-30] MEDS: Cyanocobalamin (Vitamin B-12) 1,000 MCG TAB PO SCH (09:13)
[2020-12-30] MEDS: NIFEdipine XL 60 MG TAB PO SCH (09:14)
[2020-12-30] MEDS: Losartan 25 MG TAB PO SCH (09:15)
[2020-12-30] MEDS: Sodium Chloride 1 GM TAB PO SCH (09:15)
[2020-12-30] MEDS: Folic Acid 1 MG TAB PO SCH (09:15)
[2020-12-30] MEDS: Heparin 5,000 UNITS/ML VIAL SC SCH (09:15)
[2020-12-30] MEDS: Nitrofurantoin Monohyd/M-Cryst 100 MG CAP PO SCH (09:15)
[2020-12-30] MEDS: Famotidine 20 MG TAB PO SCH (09:16)
[2020-12-30 14:57] LABS: Free T4 (Free Thyroxine) 1.82 ng/dL (0.70-1.48); Thyroid Stimulating Hormone 2.8644 uIU/mL (0.35-4.94)
[2020-12-30 15:46] VITALS: BP 117/59; TEMP 97.8
[2020-12-31] MEDS ORDERED: NIFEdipine XL 60 MG TAB PO SCH (09:00)
== END 2020-12-30 15:41 | disposition swing bed (61) | DRG 643 ==
LOC: ERS 23:21 → EDBD 23:21 → IMCU/EMU 12-18 01:03 → 2NO 12-19 16:24 → T4-A 12-27 15:54
PROVIDERS: ADMIT Internal Medicine; ATTEND Internal Medicine
DX: E22.2 Syndrome of inappropriate secretion of antidiuretic hormone (principal); G93.41 Metabolic encephalopathy; Z20.822 Contact with and (suspected) exposure to COVID-19; R65.11 Systemic inflammatory response syndrome (SIRS) of non-infectious origin with acute organ dysfunction; N39.0 Urinary tract infection, site not specified; I10 Essential (primary) hypertension; E03.9 Hypothyroidism, unspecified; R73.9 Hyperglycemia, unspecified; E87.6 Hypokalemia; I65.21 Occlusion and stenosis of right carotid artery; T50.2X5A Adverse effect of carbonic-anhydrase inhibitors, benzothiadiazides and other diuretics, initial encounter; E86.0 Dehydration; B96.20 Unspecified Escherichia coli [E. coli] as the cause of diseases classified elsewhere; K59.00 Constipation, unspecified; Z90.710 Acquired absence of both cervix and uterus; Z79.890 Hormone replacement therapy; Z79.899 Other long term (current) drug therapy; S22.019D Unspecified fracture of first thoracic vertebra, subsequent encounter for fracture with routine healing
CPT/HCPCS: 0240U; 36415; 36416; 51702; 70450; 70496; 70498; 70551; 71045; 72125; 74178; 80048; 80053; 80069; 81003; 81015; 82140; 82306; 82607; 82746; 83036; 83497; 83605; 83735; 83835; 83880; 83930; 83935; 84100; 84300; 84439; 84443; 84481; 84484; 85025; 85379; 85610; 85730; 87040; 87077; 87086; 87186; 93005; 95712; 95816; 95819; 95957; 96365; 96368; 96375; J0360; J0692; J0696; J1644; J3370; J3480; J3490; Q9967

== ENCOUNTER 2021-04-06 12:54 | Outpatient (CLI) | payer MEDICARE | END 2021-04-06 12:55 | disposition home or self-care (01) | LOC: TBSIIMAG 12:54 | PROVIDERS: ATTEND Neurological Surgery | DX: M48.56XA Collapsed vertebra, not elsewhere classified, lumbar region, initial encounter for fracture (principal); M47.816 Spondylosis without myelopathy or radiculopathy, lumbar region; S22.32XD Fracture of one rib, left side, subsequent encounter for fracture with routine healing | CPT/HCPCS: 72070; 72100 ==